=== PATIENT | female | born 2000 | race Hispanic/Latino ===

== ENCOUNTER 2024-02-07 22:51 | Emergency (ER) | payer OTHER ==
[2024-02-07 23:52] LABS: Absolute Eosinophils 0.1 K/uL (0-0.5); Absolute Lymphocytes (CBC) 2.6 K/uL (0.7-4.9); Absolute Monocytes 0.7 K/uL (0.1-1.3); Absolute Neutrophil 10.6 K/uL (1.8-8.0); Basophils % 0.3 % (0-1.3); Eosinophils % 0.7 % (0-4.4); Hematocrit 36.4 % (36.0-45.0); Lymphocytes % 18.5 % (15.3-44.8); MCH 27.2 pg (27.0-35.0); MCV 82.4 fL (80-100); MPV 8.5 fL (7.6-11.3); Monocytes % 4.8 % (3.3-12.3); Neutrophils % 75.7 % (41.7-73.7); Nucleated Red Blood Cells % 0.1 % (0-0); Platelets 300 thou/uL (152-406); RBC Red Blood Cell Count 4.41 M/uL (3.86-4.86)
[2024-02-08 00:07] LABS: Anion Gap 9.6 mEq/L (5.0-15.0); Potassium 3.6 mEq/L (3.5-5.1)
[2024-02-08 01:08] LABS: Specific Gravity 1.016 (1.005-1.030); Sqamous Epithelial <5 /HPF (None Seen); Urine Bacteria <20 /HPF (<20); Urine Bilirubin NEGATIVE (Negative); Urine Blood Negative (Negative); Urine Clarity Extremely Turbid (Clear); Urine Color Light-Yellow (Yellow); Urine Culture Reflex Order NOT NEEDED; Urine Glucose NEGATIVE (Negative); Urine Ketones NEGATIVE (Negative); Urine Microscopic Reflex YN ORDER UMIC; Urine Mucus Slight /HPF (None Seen); Urine Nitrite NEGATIVE (Negative); Urine Protein NEGATIVE (Negative); Urine RBC <5 /HPF (None Seen); Urine Urobilinogen Normal (Normal); Urine WBC <5 /HPF (<5)
--- NOTE | 2024-02-08 01:10 | ER ---
Nurse's Notes [facility] Name: Leidy Kearney Age: 23 yrs Sex: Female : 2000 Arrival Date: 02/07/2024 Time: 22:51 Bed 6 Private MD: Diagnosis: Abdominal pain, Generalized Presentation: 02/06 23:08 Chief complaint: Patient states: 26 weeks complaining of abdominal pain onset cm10 at 1700. PT states that her pain is intermittent. Denies any bleeding. Coronavirus screen: Client denies travel out of the [place] in the last 14 days. At this time, the client does not indicate any symptoms associated with coronavirus-19. Ebola Screen: Patient denies travel to an Ebola-affected area in the 21 days before illness onset. No symptoms or risks identified at this time. Initial Sepsis Screen: Does the patient meet any 2 criteria? No. Patient's initial sepsis screen is negative. Does the patient have a suspected source of infection? No. Patient's initial sepsis screen is negative. Risk Assessment: Do you want to hurt yourself or someone else? Patient reports no desire to harm self or others. Onset of symptoms. 23:08 Method Of Arrival: Ambulatory cm10 23:08 Acuity: MARA 3 cm10 Triage Assessment: 23:12 General: Appears in no apparent distress. comfortable, Behavior is calm, cooperative. cm10 Pain: Complains of pain in abdomen. Historical: - Allergies: 23:11 No Known Allergies; cm10 - Home Meds: 23:11 None [Active]; cm10 - PMHx: 23:11 None; cm10 - PSHx: 23:11 None; cm10 - Immunization history:: Adult Immunizations up to date. - Infectious Disease History:: Denies. - Social history:: Smoking status: Patient denies any tobacco usage or history of. Screenin:23 [facility] ED Fall Risk Assessment (Adult) History of falling in the last 3 months, lg3 including since admission No falls in past 3 months (0 pts) Confusion or Disorientation No (0 pts) Intoxicated or Sedated No (0 pts) Impaired Gait No (0 pts) Mobility Assist Device Used No (0 pt) Altered Elimination No (0 pt) Score/Fall Risk Level 0 - 2 = Low Risk Oriented to surroundings, Maintained a safe environment, Educated pt \T\ family on fall prevention, incl call for assistance when getting out of bed, Assessed \T\ reinforced patient's understanding of fall precautions. Abuse screen: Denies threats or abuse. Denies injuries from another. Nutritional screening: No deficits noted. Tuberculosis screening: No symptoms or risk factors identified. Assessment: 23:23 General: Appears in no apparent distress. comfortable, Behavior is calm, cooperative. lg3 Pain: Complains of pain in abdomen. Neuro: No deficits noted. Bedoya Agitation-Sedation Scale (RASS): 0 - Alert and Calm Level of Consciousness is awake, alert, obeys commands, Oriented to person, place, time, situation. Cardiovascular: No deficits noted. Denies chest pain, shortness of breath, Heart tones S1 S2 present Capillary refill < 3 seconds Clubbing of nail beds is absent JVD is absent Patient's skin is warm and dry. Respiratory: No deficits noted. Airway is patent Respiratory effort is even, unlabored, Respiratory pattern is regular, symmetrical, Breath sounds are clear bilaterally. GI: Abdomen is round Bowel sounds present X 4 quads. Abd is soft X 4 quads Reports lower abdominal pain, upper abdominal pain, cramping, nausea. : No signs and/or symptoms were reported regarding the genitourinary system. EENT: No deficits noted. No signs and/or symptoms were reported regarding the EENT system. Derm: No deficits noted. No signs and/or symptoms reported regarding the dermatologic system. Skin is intact, is healthy with good turgor, Skin is dry, Skin is normal, Skin temperature is warm. Musculoskeletal: No deficits noted. No signs and/or symptoms reported regarding the musculoskeletal system. Circulation, motion, and sensation intact. Range of motion: intact in all extremities. 02/07 00:30 Reassessment: Patient appears in no apparent distress at this time. Patient and/or pf1 family updated on plan of care and expected duration. Pain level reassessed. Patient is alert, oriented x 3, equal unlabored respirations, skin warm/dry/pink. 01:32 Reassessment: Patient appears in no apparent distress at this time. Patient and/or pf1 family updated on plan of care and expected duration. Pain level reassessed. Patient is alert, oriented x 3, equal unlabored respirations, skin warm/dry/pink. Patient states feeling better. Patient states symptoms have improved. Vital Signs: 02/06 23:08 BP 121 / 88; Pulse 92; Resp 18; Temp 98.3; Pulse Ox 99% on R/A; Weight 75.75 kg; Pain cm10 01/22; 02/07 00:00 BP 118 / 78; Pulse 89; Resp 16; Pulse Ox 100% ; pf1 01:00 BP 103 / 65; Pulse 85; Resp 16; Temp 98(O); Pulse Ox 99% ; pf1 02/06 23:08 Pain Scale: Adult cm10 ED Course: 02/06 22:54 Patient arrived in ED. gm2 22:58 [facility]C [facility] kb 22:58 Greg Call MD is Attending Physician. kb 23:10 Triage completed. cm10 23:12 Arm band placed on Patient placed in an exam room, on a stretcher. cm10 23:23 Patient has correct armband on for positive identification. Placed in gown. Bed in low lg3 position. Call light in reach. Side rails up X 1. Client placed on continuous cardiac and pulse oximetry monitoring. NIBP monitoring applied. Door closed. Noise minimized. Warm blanket given. Pillow given. Family accompanied patient. 23:37 US OB Limited In Process Unspecified. EDMS 23:51 Heather Giordano, RN is Primary Nurse. lg3 23:51 Inserted saline lock: 20 gauge in right antecubital area, using aseptic technique. lg3 Blood collected. 02/07 01:31 Provided Education on: follow up. pf1 01:31 No provider procedures requiring assistance completed. IV discontinued, intact, pf1 bleeding controlled, No redness/swelling at site. Pressure dressing applied. Administered Medications: No medications were administered Medication: 01:32 VIS not applicable for this client. pf1 Outcome: 01:10 Discharge ordered by . ec2 01:31 Discharged to home ambulatory, with family, pf1 01:31 Condition: improved 01:31 Discharge instructions given to patient, family, Instructed on discharge instructions, follow up and referral plans. Demonstrated understanding of instructions, follow-up care, 01:35 Patient left the ED. pf1 Signatures: Dispatcher [employer] EDID Lani Carranza FNP-C FISH AND WILDLIFE BIOLOGIST-Heather Gabriel, RN RN lg3 Monique Wills RN RN pf1 Eleanor Connolly RN RN cm10 Greg Call MD MD ec2 Cecille Palacio 2
--- NOTE | 2024-02-08 01:10 | EDPHYS ---
Physician Documentation [facility] Name: Leidy Kearney Age: 23 yrs Sex: Female : 2000 Arrival Date: 02/07/2024 Time: 22:51 Bed 6 Private MD: ED Physician Greg Call HPI: 02/07 00:00 This 23 yrs old Female presents to ER via Ambulatory with complaints of kb Abdominal Cramping, 26 WEEKS PREG. 00:00 Pt is a 23 year old female who presents for lower abd cramping that started today. kb States she is 26 weeks . A1, LMP 07/2023. Denies vaginal bleeding, n/v/d. States the pain is better now than it was earlier but family told her she should come get checked out. . Historical: - Allergies: 02/06 23:11 No Known Allergies; cm10 - Home Meds: 23:11 None [Active]; cm10 - PMHx: 23:11 None; cm10 - PSHx: 23:11 None; cm10 - Immunization history:: Adult Immunizations up to date. - Infectious Disease History:: Denies. - Social history:: Smoking status: Patient denies any tobacco usage or history of. ROS: 23:59 Constitutional: As per HPI kb Exam: 23:59 Constitutional: This is a well developed, well nourished patient who is awake, alert, kb and in no acute distress. Head/Face: Normocephalic, atraumatic. ENT: Moist Mucous membranes Cardiovascular: Regular rate Respiratory: Respirations even and unlabored. No increased work of breathing. Talking in full sentences Abdomen/GI: Soft, non-tender. No distention Skin: Warm, dry with normal turgor. Normal color. MS/ Extremity: Pulses equal, no cyanosis. Neurovascular intact. Full, normal range of motion. Neuro: Awake and alert, GCS 15, oriented to person, place, time, and situation. Moves all extremities. Normal gait. Vital Signs: 23:08 BP 121 / 88; Pulse 92; Resp 18; Temp 98.3; Pulse Ox 99% on R/A; Weight 75.75 kg; Pain cm10 5/10; 02/07 00:00 BP 118 / 78; Pulse 89; Resp 16; Pulse Ox 100% ; pf1 01:00 BP 103 / 65; Pulse 85; Resp 16; Temp 98(O); Pulse Ox 99% ; pf1 02/06 23:08 Pain Scale: Adult cm10 MDM: 02/06 22:58 Patient medically screened. 02/07 00:01 Differential diagnosis: Patrick cota, threatened Ab. Data reviewed: vital signs, kb nurses notes. 00:39 ED course: Patient signed out to me, in brief patient arrives today with abdominal ec2 cramping, has an ultrasound that is reassuring. Plan is to follow-up urine studies and discharge with or without antibiotic coverage. Patient without any significant urinary complaints.. 01:09 ED course: Urine is noninfectious appearing. Will discharge home. Return precautions ec2 given.. 02/06 23:07 Order name: Basic Metabolic Panel; Complete Time: 00:25 kb 02/06 23:07 Order name: CBC with Diff; Complete Time: 23:57 kb 02/06 23:07 Order name: Urinalysis w/ reflexes; Complete Time: 01:09 kb 02/06 23:07 Order name: US OB Limited kb 02/06 23:07 Order name: IV Saline Lock; Complete Time: 01:14 kb 02/06 23:07 Order name: Labs collected and sent; Complete Time: 01:14 kb 02/06 23:07 Order name: NPO; Complete Time: 01:14 kb Administered Medications: No medications were administered Disposition: 00:40 I agree with the assessment and plan of care. I reviewed the patient's care provided by 2 Advanced Practice Provider \T\ agree w/ the diagnosis \T\ care plan. I personally saw the pt \T\ performed a substantive portion of the visit, incldng all aspects of the (History/Exam/Medical Decision Making). Disposition Summary: 02/08/24 01:10 Discharge Ordered Notes: Location: Home ec2 Condition: Stable ec2 Diagnosis - Abdominal pain, Generalized ec2 Followup: ec2 - With: Private Physician - When: - Reason: Re-evaluation by your physician Discharge Instructions: - Discharge Summary Sheet ec2 - Abdominal Pain, Adult ec2 Forms: - Medication Reconciliation Form ec2 - Antibiotic Education ec2 - Prescription Opioid Use ec2 - Patient Portal Instructions ec2 - Leadership Thank You Letter ec2 Signatures: Dispatcher [employer] EDLani Guzman, ANTIQUE REFINISHER-C ANTIQUE REFINISHER-Eleanor Warren, MOOKIE RN cm10 Greg Call MD MD ec2
[2024-02-08 01:55] VITALS: BP 103/65; TEMP 98; O2SAT 99
--- NOTE | 2024-02-08 17:00 | RAD REPORT ---
EXAM DESCRIPTION: US - OB Limited - 02/07/2024 11:35 pm COMPARISON: None. TECHNIQUE: High-resolution grayscale transabdominal sonographic evaluation of the pelvis performed with color flow. FINDINGS: Single intrauterine . Cervix 3.7 cm in length. heart rate 145 bpm Anterior placenta Femur length 4.4 cm, 24 weeks 2 days. Estimated date of delivery of 05/27/2024 CATHY 12.6 cm IMPRESSION: Single live intrauterine . No sonographic abnormality Electronically signed by: Eugenio Hudson MD 02/08/2024 12:26 AM CDT Workstation: [id number] Due to temporary technical issues with the PACS/Fluency reporting system, reports are being signed by the in house radiologists without review as a courtesy to insure prompt reporting. The interpreting radiologist is fully responsible for the content of the report.
== END 2024-02-08 01:35 | disposition home or self-care (01) ==
LOC: ER 22:51
DX: O26.892 Other specified pregnancy related conditions, second trimester (principal); Z3A.26 26 weeks gestation of pregnancy
CPT/HCPCS: 36415; 76815; 80048; 81001; 85025; 99284

== ENCOUNTER 2024-05-31 16:54 | Emergency (ER) | payer OTHER ==
[2024-05-31 17:48] LABS: Absolute Eosinophils 0.2 K/uL (0-0.5); Absolute Monocytes 0.3 K/uL (0.1-1.3); Absolute Neutrophil 4.1 K/uL (1.8-8.0); Basophils % 0.6 % (0-1.3); Eosinophils % 2.9 % (0-4.4); Hematocrit 38.9 % (36.0-45.0); Hemoglobin 12.5 g/dL (12.0-15.0); Lymphocytes % 30.9 % (15.3-44.8); MCH 24.9 pg (27.0-35.0); MCHC 32.1 g/dL (32.0-36.0); MCV 77.5 fL (80-100); Monocytes % 4.2 % (3.3-12.3); Neutrophils % 61.4 % (41.7-73.7); Platelets 268 thou/uL (152-406); RBC Red Blood Cell Count 5.01 M/uL (3.86-4.86); Red Cell Distribution Width 15.4 % (12.1-15.2)
[2024-05-31 18:06] LABS: ALT/SGPT 19 U/L (13-56); AST/SGOT 11 U/L (15-37); Albumin 3.4 g/dL (3.4-5.0); Albumin/Globulin Ratio 0.9 (1.1-1.8); Alkaline Phosphatase 103 U/L (45-117); Anion Gap 8.5 mEq/L (5.0-15.0); BUN Blood Urea Nitrogen 11 mg/dL (7-18); Bicarbonate 28 mEq/L (21-32); Bilirubin Total 0.4 mg/dL (0.2-1.0); Globulin 3.8 g/dL (2.3-3.5); Glomerular Filtration Rate 98 ml/min (=/>90); Glucose Level 103 mg/dL (74-106); Magnesium 1.9 mg/dL (1.6-2.4); Potassium 3.5 mEq/L (3.5-5.1); Protein, Total 7.2 g/dL (6.4-8.2); Sodium Level 139 mEq/L (136-145)
[2024-05-31 18:25] LABS: Bilirubin Direct < 0.2 mg/dL (0-0.2); Bilirubin Indirect, Calculated 0.2 mg/dL (0.2-0.8); Troponin High Sensitivity < 3.0 pg/mL (<58.9)
[2024-05-31 18:41] LABS: Specific Gravity 1.024 (1.005-1.030)
--- NOTE | 2024-05-31 19:13 | RAD REPORT ---
EXAMINATION: ONE VIEW CHEST XR CLINICAL INDICATION: Female, 23 years old. [facility] MAIN CHEST PAIN Bed Name: 15 TECHNIQUE: Frontal chest projection is submitted. Examination is limited by patient positioning and t echnique. COMPARISON: No prior exam. FINDINGS: The lungs are well inflated and clear. No pneumothorax or sizable effusion. The heart is normal in s ize. IMPRESSION: No acute intrathoracic abnormalities.
--- NOTE | 2024-05-31 19:39 | ER ---
Nurse's Notes [facility] Name: Leidy Kearney Age: 23 yrs Sex: Female : 2000 Arrival Date: 05/31/2024 Time: 16:54 Bed 15 Private MD: Diagnosis: Chest pain, unspecified Presentation: 05/31 17:13 Chief complaint: Patient states: reports CP under bilateral breasts and mid sternal me1 that feels like a stabbing pain. 6/10 that started about a week ago. She states that sometimes she feels "hot inside" in her midchest. Patient did start breast feeding about a month ago. Coronavirus screen: Vaccine status: Patient reports receiving the 2nd dose of the covid vaccine. Ebola Screen: No symptoms or risks identified at this time. Initial Sepsis Screen: Does the patient meet any 2 criteria? No. Patient's initial sepsis screen is negative. Does the patient have a suspected source of infection? No. Patient's initial sepsis screen is negative. Risk Assessment: Do you want to hurt yourself or someone else? Patient reports no desire to harm self or others. Onset of symptoms is unknown. 17:13 Method Of Arrival: Ambulatory nv1 17:13 Acuity: MARA 3 me1 Triage Assessment: 17:16 General: Appears uncomfortable, well groomed, well developed, well nourished, Behavior me1 is calm, cooperative, appropriate for age, Reports chest pain x 1 week. Pain: Complains of pain in chest Pain does not radiate. Pain currently is 6 out of 10 on a pain scale. Quality of pain is described as stabbing, Pain began gradually, a week ago Is continuous. EENT: No deficits noted. Neuro: Level of Consciousness is awake, alert, obeys commands, Oriented to person, place, time, situation, Appropriate for age. Cardiovascular: Patient's skin is warm and dry. Cardiovascular: Reports chest pain. Respiratory: Airway is patent Respiratory effort is even, unlabored, Respiratory pattern is regular, symmetrical. GI: No signs and/or symptoms were reported involving the gastrointestinal system. : No signs and/or symptoms were reported regarding the genitourinary system. Derm: Skin is intact, is healthy with good turgor, Skin is pink, warm \\T\\ dry. Musculoskeletal: No signs and/or symptoms reported regarding the musculoskeletal system. 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 me1 Historical: - Allergies: 17:16 No Known Allergies; me1 - PMHx: 17:16 None; me1 - PSHx: 17:16 section; me1 - Immunization history:: Adult Immunizations up to date. - Infectious Disease History:: Denies. - Social history:: Smoking status: Patient denies any tobacco usage or history of. Screenin:19 [facility] ED Fall Risk Assessment (Adult) History of falling in the last 3 months, me1 including since admission No falls in past 3 months (0 pts) Confusion or Disorientation No (0 pts) Intoxicated or Sedated No (0 pts) Impaired Gait No (0 pts) Mobility Assist Device Used No (0 pt) Altered Elimination No (0 pt) Score/Fall Risk Level 0 - 2 = Low Risk Maintained a safe environment, Provided non-skid footwear, Hourly rounding (assess needs \\T\\ fall precautionary measures) done. Abuse screen: Denies threats or abuse. Nutritional screening: No deficits noted. Tuberculosis screening: No symptoms or risk factors identified. Assessment: 17:19 General: See triage assessment. . Pain: Complains of pain in chest. me1 Vital Signs: 17:13 BP 116 / 84; Pulse 92; Resp 16; Temp 97.6; Pulse Ox 98% on R/A; Weight 72.57 kg; Height me1 5 ft. 2 in. ; Pain 6/10; 18:00 BP 115 / 78; Pulse 79; Resp 19; Pulse Ox 99% on R/A; me1 19:00 BP 100 / 67; Pulse 83; Resp 19; Pulse Ox 96% ; me1 17:13 Body Mass Index 29.26 (72.57 kg, 157.48 cm) me1 17:13 Pain Scale: Adult nv1 ED Course: 17:00 Patient arrived in ED. ra3 17:00 Lani Carranza FNP-C [facility]. kb 17:00 Violeta Taylor MD is Attending Physician. kb 17:07 Arm band placed on Patient placed in an exam room, on a stretcher. ll1 17:13 Ragiin Bonilla, RN is Primary Nurse. me1 17:16 Triage completed. me1 17:19 Patient has correct armband on for positive identification. Bed in low position. Call [facility] light in reach. Side rails up X 1. Provided Education on: POC. Verbalized understanding.. Client placed on continuous cardiac and pulse oximetry monitoring. NIBP monitoring applied. Pulse ox on. NIBP on. 17:19 No provider procedures requiring assistance completed. Patient maintains SpO2 nv1 saturation greater than 95% on room air. 17:36 Initial lab(s) drawn, by me, sent to lab. Inserted saline lock: 22 gauge in right nv1 antecubital area, using aseptic technique. Blood collected. Flushed with 10 mL NS. 17:37 Basic Metabolic Panel Sent. [facility] 17:37 CBC with Diff Sent. [facility] 17:37 D-Dimer Sent. [facility] 17:37 LFT's Sent. [facility] 17:37 Magnesium Sent. nv1 17:37 Troponin HS Sent. nv1 18:21 EKG done, by senior maintenance technician. reviewed by Lani WHITING. nv1 18:25 Test, Urine Sent. nv1 18:52 XRAY Chest (1 view) In Process Unspecified. EDMS 20:06 IV discontinued, intact, bleeding controlled, No redness/swelling at site. Pressure vc1 dressing applied. Administered Medications: No medications were administered Medication: 17:19 VIS not applicable for this client. [facility] Outcome: 19:38 Discharge ordered by . zbigniew 20:05 Discharged to home ambulatory, vc1 20:05 Condition: good 20:05 Discharge instructions given to patient, Instructed on discharge instructions, follow up and referral plans. Demonstrated understanding of instructions, follow-up care, 20:06 Patient left the ED. vc1 Signatures: Dispatcher [employer] Lani Schaefer, JOHANNE TODD-Ron Dennis RN RN 1 Aura Sousa RN RN vc1 Ragini Bonilla RN RN nv1 Loren Ruano ra3
--- NOTE | 2024-05-31 19:39 | EDPHYS ---
Physician Documentation [facility] [place] [place] Name: Leidy Kearney Age: 23 yrs Sex: Female : 2000 Arrival Date: 05/31/2024 Time: 16:54 Bed 15 Private MD: ED Physician Violeta Taylor HPI: 05/31 22:05 This 23 yrs old Female presents to ER via Ambulatory with complaints of Chest kb Pain, Abnormal Lab Results. 22:05 Pt is a 23 year old female who presents for intermittent chest pain for one week, worse kb with inspiration. States she went to and was told to come for further evaluation in the ER. Pt had on 04/23/24. Denies nausea, vomiting, shortness of breath. Pain starts in center of chest and radiates diffusely. 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 me1 Historical: - Allergies: 17:16 No Known Allergies; me1 - PMHx: 17:16 None; me1 - PSHx: 17:16 section; me1 - Immunization history:: Adult Immunizations up to date. - Infectious Disease History:: Denies. - Social history:: Smoking status: Patient denies any tobacco usage or history of. ROS: 22:05 Constitutional: As per HPI kb Exam: 22:05 Constitutional: This is a well developed, well nourished patient who is awake, alert, kb and in no acute distress. Head/Face: Normocephalic, atraumatic. ENT: Moist Mucous membranes Cardiovascular: Regular rate Respiratory: Respirations even and unlabored. No increased work of breathing. Talking in full sentences Abdomen/GI: Soft, non-tender. No distention Skin: Warm, dry with normal turgor. Normal color. MS/ Extremity: Pulses equal, no cyanosis. Neurovascular intact. Full, normal range of motion. Neuro: Awake and alert, GCS 15, oriented to person, place, time, and situation. Moves all extremities. Normal gait. 22:14 ECG was reviewed by the Attending Physician. Vital Signs: 17:13 BP 116 / 84; Pulse 92; Resp 16; Temp 97.6; Pulse Ox 98% on R/A; Weight 72.57 kg; Height me1 5 ft. 2 in. ; Pain 6/10; 18:00 BP 115 / 78; Pulse 79; Resp 19; Pulse Ox 99% on R/A; me1 19:00 BP 100 / 67; Pulse 83; Resp 19; Pulse Ox 96% ; me1 17:13 Body Mass Index 29.26 (72.57 kg, 157.48 cm) me1 17:13 Pain Scale: Adult me1 MDM: 17:00 Patient medically screened. kb 22:04 Differential diagnosis: acute mi, arrhythmia, abnormal electrolytes, PE. Data reviewed: kb vital signs, nurses notes. Test considered but Not performed: CT: ct chest considered but ddimer normal. Counseling: I had a detailed discussion with the patient and/or guardian regarding the historical points, exam findings, and any diagnostic results supporting the discharge/admit diagnosis, lab results, radiology results, the need for outpatient follow up, a family practitioner, to return to the emergency department if symptoms worsen or persist or if there are any questions or concerns that arise at home. 05/31 17:11 Order name: Basic Metabolic Panel; Complete Time: 18:31 kb 05/31 17:11 Order name: CBC with Diff; Complete Time: 18:13 kb 05/31 17:11 Order name: D-Dimer; Complete Time: 18:42 kb 05/31 17:11 Order name: LFT's; Complete Time: 18:31 kb 05/31 17:11 Order name: Magnesium; Complete Time: 18:31 kb 05/31 17:11 Order name: Troponin HS; Complete Time: 18:31 kb 05/31 18:23 Order name: Test, Urine; Complete Time: 18:42 [facility] 05/31 17:11 Order name: XRAY Chest (1 view); Complete Time: 19:16 kb 05/31 17:11 Order name: EKG; Complete Time: 17:11 kb 05/31 17:11 Order name: Cardiac monitoring; Complete Time: 18:25 kb 05/31 17:11 Order name: EKG - Nurse/Tech; Complete Time: 18:21 kb 05/31 17:11 Order name: IV Saline Lock; Complete Time: 17:36 kb 05/31 17:11 Order name: Labs collected and sent; Complete Time: 17:36 kb 05/31 17:11 Order name: O2 Per Protocol; Complete Time: 17:29 kb 05/31 17:11 Order name: O2 Sat Monitoring; Complete Time: 17:29 kb EC:14 Rate is 74 beats/min. Rhythm is regular. QRS [place] is Normal. [place] interval is normal at kb 128 msec. QRS interval is normal at 78 msec. QT interval is normal at 410 msec. Administered Medications: No medications were administered Disposition Summary: 05/31/24 19:38 Discharge Ordered Notes: Location: Home kb Condition: Stable kb Diagnosis - Chest pain, unspecified kb Followup: kb - With: Emergency Department - When: As needed - Reason: Worsening of condition Followup: kb - With: Private Physician - When: 2 - 3 days - Reason: Recheck today's complaints, Continuance of care, Re-evaluation by your physician Discharge Instructions: - Discharge Summary Sheet kb - Nonspecific Chest Pain, Adult, [id number] kb Forms: - Medication Reconciliation Form kb - Antibiotic Education kb - Prescription Opioid Use kb - Patient Portal Instructions kb - Leadership Thank You Letter kb Signatures: Dispatcher [employer] Lani Schaefer, KOSHER BUTCHER-C KOSHER BUTCHER-Ragini Lopez, RN RN me1
[2024-05-31 20:40] VITALS: TEMP 97.6
[2024-05-31 20:41] VITALS: BP 100/67; O2SAT 96
--- NOTE | 2024-06-01 16:58 | EKG ---
Test Date: 2024-05-31 Test Time: 17:48:33 Maintainability Engineer: MIRTHA MEASUREMENT RESULTS: Intervals: Rate: 74 ID: [id number] QRSD: 78 QT: 370 QTc: 410 [place]: P: 44 ID: [id number] QRS: 92 T: 29 INTERPRETIVE STATEMENTS: Normal sinus rhythm Rightward axis Borderline ECG No previous ECG available for comparison Electronically Signed On 06-01-24 16:54:55 CDT by Josue Almeida
== END 2024-05-31 20:06 | disposition home or self-care (01) ==
LOC: ER 16:54
DX: R07.9 Chest pain, unspecified (principal)
CPT/HCPCS: 36415; 71045; 80048; 80076; 81025; 83735; 84484; 85025; 85379; 93005; 99284